=== PATIENT | female | born 1975 | race American Indian/Alaskan Native ===

== ENCOUNTER 2018-12-25 23:55 | Emergency (ER) | payer MEDICAID, OTHER ==
[2018-12-26] MEDS ORDERED: TYLENOL PO ONE (01:27)
[2018-12-26] MEDS ORDERED: TYLENOL ONE (01:27)
[2018-12-26] MEDS ORDERED: TORADOL IM ONE (08:00)
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
[2018-12-26 09:03] VITALS: BP 107/53
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
== END 2018-12-26 11:47 | disposition home or self-care (01) ==
LOC: ED 23:55
DX: M79.18 Myalgia, other site (principal); Z88.8 Allergy status to other drugs, medicaments and biological substances; Z91.040 Latex allergy status
CPT/HCPCS: 70450; 71101; 72125; 73030; 73090; 96372; 99284; J1885